=== PATIENT | male | born 1980 | race Caucasian/White ===

== ENCOUNTER 2019-08-31 17:02 | Emergency (ER) | payer SELFPAY ==
[~2019-08-31] VITALS: Ht 182.9 cm; Wt 117.9 kg
[2019-08-31 17:05] VITALS: Ht 182.9 cm; Wt 117.9 kg
[2019-08-31 18:14] VITALS: BP 163/102
== END 2019-08-31 18:08 | disposition home or self-care (01) ==
LOC: ED 17:02
DX: B34.9 Viral infection, unspecified (principal)
CPT/HCPCS: 87804

== ENCOUNTER 2019-12-26 06:28 | Emergency (ER) | payer SELFPAY ==
[~2019-12-26] VITALS: Ht 185.4 cm; Wt 117.9 kg
[2019-12-26 06:35] VITALS: Ht 185.4 cm; Wt 117.9 kg
[2019-12-26 08:06] LABS: CALCIUM 8.1 mg/dL (8.5-10.1); CARBON DIOXIDE 27.4 mmol/L (21-32); CHLORIDE SERUM 101 mmol/L (98-107); GFR1 > 60 mL/min; GLUCOSE SERUM 125 mg/dL (74-106); POTASSIUM SERUM 3.3 mmol/L (3.5-5.1); SODIUM SERUM 137 mmol/L (136-145)
[2019-12-26 08:10] LABS: ALBUMIN 3.4 g/dL (3.4-5.0); ALKALINE PHOSPHATASE 98 U/L (46-116); ALT/SGPT 31 U/L (16-63); AST/SGOT 10 U/L (15-37); BILIRUBIN TOTAL 0.32 mg/dL (0.20-1.00); TOTAL PROTEIN, SERUM 6.9 g/dL (6.4-8.2)
[2019-12-26 08:20] LABS: BASOPHIL % 0.5 % (0-2); PLATELET COUNT 222 x10^3mcL (130-400); RED CELL DISTRIBUTION WIDTH 12.9 % (11.5-14.5)
[2019-12-26 09:44] VITALS: BP 166/104
== END 2019-12-26 09:38 | disposition home or self-care (01) ==
LOC: ED 06:28
PROVIDERS: Student in an Organized Health Care Education/Training Program
DX: R53.1 Weakness (principal); R53.81 Other malaise; R11.0 Nausea; I10 Essential (primary) hypertension; Z20.828 Contact with and (suspected) exposure to other viral communicable diseases
CPT/HCPCS: J7030; Q0092; U0003-CS